=== PATIENT | female | born 1945 | race Caucasian/White ===

== ENCOUNTER → 2016-08-31 | Outpatient (CLI) | payer MEDICARE, OTHER ==
--- NOTE | 2016-08-31 14:09 | MR ---
EXAMINATION TYPE: MR lumbar spine wo con DATE OF EXAM: 08/31/2016 2:06 PM COMPARISON: NONE HISTORY: Lumbago TECHNIQUE: Multiplanar, multisequence images of the lumbar spine were acquired. L1-L2: Normal disc appearance without desiccation. No herniation, protrusion or disc bulging. No ca nal stenosis is present. Foramina are patent bilaterally. L2-L3: Moderate degenerative disc space narrowing with moderate circumferential disc bulge posteriorl y and effacement of the ventral thecal sac. Mild left foraminal encroachment. No evidence for central stenosis. L3-L4: Moderate disc desiccation identified. Broad-based posterior disc bulge with subligamentous her niation not excluded. Effacement of the ventral thecal sac. Left lateral recess stenosis and mild lef t foraminal encroachment. No evidence for central stenosis. L4-L5: Moderate to severe degenerative disc disease with vacuum disks noted. Circumferential disc bul ge greatest posterior centrally right cannot exclude a small herniation. Mild effacement ventral thec al sac without definite lateral recess stenosis or central stenosis. Facet joint arthropathy with mil d bilateral foraminal encroachment. L5-S1: Moderate to severe degenerative disc disease with vacuum disks noted. Circumferential disc bul ge greatest posterior centrally right cannot exclude a small herniation. Mild effacement ventral thec al sac without definite lateral recess stenosis or central stenosis. Facet joint arthropathy with mil d bilateral foraminal encroachment. Lumbar segments are intact. No paraspinal masses are identified. Conus medullaris has a normal appe arance. 3 mm anterolisthesis of L4 and L5. IMPRESSION: 1. Multilevel degenerative disc disease. 2. Multilevel degenerative disc bulging with mild subligamentous disc herniations difficult to exclud e. See above.
== END | disposition home or self-care (01) ==
LOC: RADMRIMAIN 13:17
PROVIDERS: ATTEND Psychiatry & Neurology Neurology
DX: M51.37 Other intervertebral disc degeneration, lumbosacral region (principal)
CPT/HCPCS: 72148

== ENCOUNTER → 2020-01-08 | Outpatient (CLI) | payer MEDICARE ==
--- NOTE | 2020-01-10 10:02 | XR ---
Lumbar spine HISTORY: Low back pain, neck pain 3 views of the lumbar spine There is a S-shaped scoliotic curvature present. Bone mineralization is reduced. There is multilevel spondylosis. Vacuum phenomenon is present at intervertebral disc levels L2-3, L3-4, L4-5 and L5-S1. T here is loss of disc height at intervertebral levels. Sclerosis present in the posterior elements of the lower lumbar spine. Minimal anterolisthesis grade 1 L4-5. Lumbar vertebral bodies show preserved height. Indeterminate calcifications are present in the paraspinal location on the right. IMPRESSION: Degenerative disc disease and facet arthropathy. Scoliosis.
--- NOTE | 2020-01-10 19:48 | XR ---
EXAMINATION TYPE: XR cervical spine 5 views comp, XR thoracic spine 3 views complete DATE OF EXAM: 01/08/2020 COMPARISON: None HISTORY: 74-year-old female cervicalgia, low back pain, thoracic spine pain. FINDINGS: Cervical spine: Leftward truncal shift. Normal odontoid view. Accentuated upper thoracic kyphosis. No predental space widening or prevertebral soft tissue swelling. Grade 1 anterolisthesis at C3-C4, C4-C5, C5-C6. Moder ate degenerative disc disease with facet and uncovertebral joint arthropathy throughout. On the right, mild multilevel bony neuroforaminal narrowing is present. On the left, moderate to armin re bony neural foraminal narrowing at C4-C5 and moderate at C5-C6. Mild additional levels. Thoracic spine: Leftward truncal shift secondary to extra convex scoliosis at the upper lumbar spine. 12 rib-bearing thoracic vertebral bodies. All pedicles are visualized. Mild multilevel degenerative disc disease and thoracic spine. Alignment appears maintained. Vertebral body heights are preserved. COMBINED IMPRESSION (cervical and thoracic spine): 1. Leftward truncal shift secondary to a dextroconvexed scoliosis along the upper lumbar spine. 2. Accentuated upper thoracic kyphosis. 3. Moderate spondylotic change throughout the cervical spine with grade 1 anterolisthesis from C3 thr ough C6 levels. Moderate to severe bony neural foraminal narrowing on the left at C4-C5 and moderate on the left at C5-C6. 4. Mild degenerative disc disease throughout the thoracic spine. 5. No vertebral compression collapsing.
== END | disposition home or self-care (01) ==
LOC: RADXRMAIN 19:13
PROVIDERS: ATTEND Family Medicine
DX: M48.061 Spinal stenosis, lumbar region without neurogenic claudication (principal); M51.36 Other intervertebral disc degeneration, lumbar region; M51.34 Other intervertebral disc degeneration, thoracic region; M47.816 Spondylosis without myelopathy or radiculopathy, lumbar region; M46.96 Unspecified inflammatory spondylopathy, lumbar region; M41.9 Scoliosis, unspecified
CPT/HCPCS: 72050; 72072; 72100

== ENCOUNTER → 2020-08-11 | Outpatient (CLI) | payer MEDICARE ==
[2020-08-11 11:14] LABS: Basophils % (A) 1 %; Eosinophils # (A) 0.2 k/uL (0-0.7); Eosinophils % (A) 3 %; HCT 40.6 % (34.0-46.0); HGB 13.5 gm/dL (11.4-16.0); Lymphocytes # (A) 1.7 k/uL (1.0-4.8); Lymphocytes % (A) 28 %; MCH 31.7 pg (25.0-35.0); MCHC 33.4 g/dL (31.0-37.0); Mean Platelet Volume 8.7; Monocytes # (A) 0.4 k/uL (0-1.0); Monocytes % (A) 7 %; Neutrophils # (A) 3.7 k/uL (1.3-7.7); Neutrophils % (A) 60 %; Platelet Count 159 k/uL (150-450); RBC 4.27 m/uL (3.80-5.40); RDW 12.8 % (11.5-15.5); WBC 6.2 k/uL (3.8-10.6)
[2020-08-11 16:12] LABS: African American GFR (CKD) 97.5 (60.0-200.0); Albumin 4.1 g/dL (3.80-4.90); Albumin/Globulin Ratio 1.78 (1.60-3.17); Anion Gap 4.3 mmol/L (4.00-12.00); Calcium 9.4 mg/dL (8.7-10.3); Carbon Dioxide 31.7 mmol/L (21.6-31.8); Globulin 2.3 g/dL (1.6-3.3); Non-African American GFR(CKD) 84.2 (60.0-200.0); Potassium 4.9 mmol/L (3.5-5.5); Total Bilirubin 0.9 mg/dL (0.3-1.2); Total Protein 6.4 g/dL (6.2-8.2)
[2020-08-12 05:58] LABS: INR 0.97 (0.90-1.11); Partial Thromboplastin Time 27.3 sec (23.5-31.0); Prothrombin Time 10.5 sec (9.9-11.9)
== END | disposition home or self-care (01) ==
LOC: LABWHC1 10:04
PROVIDERS: ATTEND Orthopaedic Surgery
DX: Z01.818 Encounter for other preprocedural examination (principal); D68.9 Coagulation defect, unspecified; R73.9 Hyperglycemia, unspecified
CPT/HCPCS: 36415; 80053; 83036; 85025; 85610; 85730; 86850; 86900; 86901; 87070

== ENCOUNTER → 2023-06-24 | Outpatient (CLI) | payer MEDICARE | END | disposition home or self-care (01) | LOC: LABWHC1 13:14 | PROVIDERS: ATTEND Family Medicine | DX: I82.409 Acute embolism and thrombosis of unspecified deep veins of unspecified lower extremity (principal) | CPT/HCPCS: 36415; 85379 ==

== ENCOUNTER → 2023-06-25 | Outpatient (CLI) | payer MEDICARE ==
--- NOTE | 2023-06-25 15:03 | US ---
EXAMINATION TYPE: US venous doppler duplex LE DATE OF EXAM: 06/25/2023 2:44 PM COMPARISON: NONE CLINICAL INDICATION: Female, 78 years old with history of R79.1 ABNORMAL COAGULATION PROFILE; SIDE PERFORMED: Bilateral TECHNIQUE: The lower extremity deep venous system is examined utilizing real time linear array sonog jasiel with graded compression, doppler sonography and color-flow sonography. VESSELS IMAGED: Common Femoral Vein Deep Femoral Vein Greater Saphenous Vein * Femoral Vein Popliteal Vein Small Saphenous Vein * Proximal Calf Veins (* superficial vessels) Right Leg: Appears negative for DVT Left Leg: Appears negative for DVT IMPRESSION: 1. Bilateral lower extremity ultrasound negative for deep venous thrombosis.
== END | disposition home or self-care (01) ==
LOC: RADUSWWP 13:47
PROVIDERS: ATTEND Family Medicine
DX: R79.1 Abnormal coagulation profile (principal)
CPT/HCPCS: 93970